=== PATIENT | female | born 1970 | race Caucasian/White ===

== ENCOUNTER 2019-07-13 12:05 | Observation (INO) | payer BC, MEDICARE, SELFPAY ==
[2019-03-01 16:19] VITALS: BMI 22.2
[2019-07-13 12:07] VITALS: BP 127/100; PULSE 59; RESP 14; TEMP 36.6; O2SAT 99; BMI 23.5
--- NOTE | 2019-07-13 14:37 | CM.ED ---
Social Work Consult: [facility] Informant: Dr. Khan Met with patient, patient mother, and patient cousin in room. Introduced self as well as social science professor role. Patient lives with spouse and a 17 year old daughter and 22 year old son in a 2-story home. Patient does not have a bathroom on the first floor and has difficulty ambulating up the stairs due to MS diagnosis. Patient typically self cath's. Patient stating to need assist for all ADL's and is able to do minimal self care. Patient stating that patient children and spouse yell at me. Patient stating that family members will often call patient names and will minimize patient medical conditions. Patient stating to not be a safe place for patient to live. This morning patient was open to leaving the home and patient mother came to get patient. Patient mother was hoping to be able to care for patient but patient fell later this morning and patient mother was unable to assist, this is what lead to patient coming to the ED today. Patient is requesting placement. Patient stating to have no money and that patient spouse refuses to complete a medicaid application or provide needed information for a medicaid application. Patient is wanting to transition to assisted living but aware that patient may require a hirer level of care due to level of needs. Patient stating to not want to return to home with family and want to work towards a divorce with patient spouse. This social science professor educating patient that everything is a process but support will be provided as needed. Patient voicing understanding and aware that group home placement from the emergency room without medicaid and without funds to pay for the group home is not possible at this time. Patient aware that plan will be to transition patient to medical floor for further assistance with group home placement. Dr. Khan confirming plan and collaborating with the hospitalist. All questions answered. Social work to continue to follow for placement. Lea PEREZ, NAE
--- NOTE | 2019-07-13 15:30 | ED.RN ---
ATTEMPTED IV ACCESS TWO TIMES, BOTH TIMES UNSUCCESSFUL. AT THIS TIME PT WANTS TO WAIT TO TRY AGAIN. BLOOD WAS DRAW.
[2019-07-13 15:49] LABS: Absolute Lymphocyte Count 1.31 X10^3/uL (0.83-4.51); Absolute Neutrophil Count 6.7 X10^3/uL (2.0-7.7); Basophil# 0.06 X10^3/uL; Basophil% 0.6 % (0-1); Eosinophil# 0.13 X10^3/uL; Eosinophils% 1.4 % (0-5); Hematocrit 41.6 % (37-47); Hemoglobin 13.9 g/dL (12.0-15.0); Lymphocyte # 1.31 X10^3/ul (4.0); Lymphocyte % 14.2 % (19-41); Mean Corp Hgb Conc 33.4 g/dL (32-36); Mean Corpuscular Hgb 30.8 pg (27.0-32.0); Mean Corpuscular Volume 92.2 fL (81-99); Mean Platelet Vol. 10.8 fl (6.2-12.0); Monocyte# 0.93 X10^3/uL; Monocyte% 10.1 % (0-10); NRBC Flagged by Analyzer 0 % (0-5); Neutrophil # 6.66 X10^3/uL (2.7-7.7); POSITIVE COUNT YES; RBC Distribution Width CV 12.6 % (11.6-14.6); RBC Distribution Width SD 42.3 fl (35.1-43.9); Red Blood Count 4.51 M/mm3 (4.2-5.4); White Blood Count 9.3 K/mm3 (4.4-11.0)
[2019-07-13 15:51] LABS: Differential Indicated SCAN CRITERIA MET
[2019-07-13 15:55] LABS: ALB/GLOB Ratio 1.4 RATIO (0.9-2.4); AST(SGOT) 30 U/L (15-37); Alanine Aminotransfer ALT/SGPT 29 U/L (13-56); Alkaline Phosphatase 80 U/L (45-117); Anion Gap 6 (5-15); BUN 12 mg/dL (7-18); BUN/Creat Ratio 17.6 RATIO (10-20); Chloride 109 mmol/L (98-107); Creatinine, Serum 0.68 mg/dL (0.55-1.02); EST Glomerular Filtration Rate 97 mL/min (>60); Est Glom Filt Rate - Afr Amer 118 mL/min (>60); Estimated Creatinine Clearance 97.32 ml/min; Globulin 2.9 g/dL (2.2-4.2); Glucose 113 mg/dL (74-106); Potassium 4.5 mmol/L (3.5-5.1); Protein, Total 6.9 g/dL (6.4-8.2); Sodium Level 144 mmol/L (136-145)
[2019-07-13 15:56] LABS: Lactic Acid 0.9 mmol/L (0.4-2.0)
[2019-07-13 15:58] VITALS: BP 119/75; PULSE 95; RESP 18; O2SAT 95
[2019-07-13 15:58] LABS: Mucous, Urine 0 SEEN /hpf (<or=2+); Red Blood Cells-Urine 0 SEEN /hpf (0-5)
[2019-07-13 16:02] LABS: Color, Urine Yellow (Yellow); Glucose, Dipstick Normal (Normal); Ketone-Dipstick Negative (Negative); Leukocyte Esterase-Dipstick 500 /ul (Negative); Nitrite-Dipstick Negative (Negative); Occult Blood-Urine 25 /ul (Negative); Protein-Dipstick Negative (Negative); Specific Gravity, Urine 1.015 (1.002-1.030); Urine Bilirubin Dipstick Negative (Negative); Urine Clarity Cloudy (Clear); Urine Urobilinogen Normal (Normal); Urine pH 6.5 (5.0 - 8.0)
[2019-07-13 16:13] LABS: Bacteria 2+ /hpf (None Seen); Squamous Epithelial Cells - UA 0-5 SEEN /hpf (5-10); White Blood Cells 25-50 SEEN /hpf (0-5)
[2019-07-13 16:31] LABS: Anisocytosis RARE; Macrocytosis RARE; Platelet Estimate ADEQUATE (ADEQ)
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
[2019-07-13 17:17] VITALS: BP 144/79; PULSE 95; O2SAT 100
[2019-07-13] MEDS: Cephalexin 250 MG Capsule 500 MG PO (17:22)
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
[2019-07-13 17:36] VITALS: BMI 23.5
[2019-07-13 18:20] VITALS: BP 123/77; PULSE 68; RESP 18; TEMP 36.3; O2SAT 99
[2019-07-13 18:34] VITALS: BMI 21.8
[2019-07-13] MEDS: Acetaminophen 325 MG Tablet 650 MG PO (19:53)
[2019-07-13 21:09] VITALS: BP 121/73; PULSE 71; RESP 18; TEMP 36.9; O2SAT 98
[2019-07-13] MEDS: MELATONIN 3 MG TABLET 12 MG PO (21:24)
[2019-07-13] MEDS: Cephalexin 500 MG Capsule PO (21:24)
[2019-07-13] MEDS: traZODone 50 MG Tablet PO (21:24)
[2019-07-13] MEDS: Heparin Injection (Vial) 5,000 UNIT/ML VIAL 5000 UNIT SC (21:41)
[2019-07-14 03:32] VITALS: BP 114/70; PULSE 96; RESP 18; TEMP 36.6; O2SAT 98
[2019-07-14] MEDS: Cephalexin 500 MG Capsule PO ×3 (06:11→21:12)
[2019-07-14 08:40] VITALS: BP 120/76; PULSE 82; RESP 16; TEMP 36.6; O2SAT 97
[2019-07-14] MEDS: Ascorbic Acid 500 MG Tablet PO (09:03)
[2019-07-14] MEDS: Multivitamins,Ther W-Minerals Tablet 1 TABLET PO (09:03)
[2019-07-14] MEDS: Tolterodine Tartrate 2 MG CAP.SA PO (09:03)
[2019-07-14] MEDS: Heparin Injection (Vial) 5,000 UNIT/ML VIAL 5000 UNIT SC ×2 (09:04→21:12)
[2019-07-14] MEDS: Polyethylene Glycol 3350 17 GM PACKET PO (09:04)
--- NOTE | 2019-07-14 11:58 | PN_ITS ---
Patient Problems: Active and Suspected Problems (Last Reviewed 01/12/19 @ 08:16 by Olman Reno DO) Urinary tract infection (Acute) General weakness (Acute) Subjective: Wants ambien to help her sleep. States she take ritalin to help her walk, and adult ADHD. Complains about discord she is having with her and children. Wants to go to a care home. Asks about how the finances would be if she were . She denies that she in process of getting . Vitals/I&O's: Vital Signs Temp Pulse Resp BP Pulse Ox 36.6 C 82 16 120/76 97 07/14/19 08:40 07/14/19 08:40 07/14/19 08:40 07/14/19 08:40 07/14/19 08:40 Oxygen Delivery Method Room Air Weight: 63.3 kg Body Mass Index (BMI) 21.8 Intake and Output for Last 24 Hours 07/12/19 07/13/19 07/14/19 23:59 23:59 23:59 Intake Total 250 / 250 120 / 120 Balance 250 / 250 120 / 120 General: Alert, - - anxious. disshevled. HEENT: Atraumatic, Normocephalic Lungs: Clear to auscultation, Normal air movement, No rhonchi, No wheeze Cardiovascular: Regular rate, Regular Rhythm, Normal S1, Normal S2 Psych/Mental Status: Anxious Laboratory Results 07/13/19 15:17: WBC 9.3, RBC 4.51, Hgb 13.9, Hct 41.6, MCV 92.2, MCH 30.8, MCHC 33.4, RDW Std Deviation 42.3, RDW Coeff of Anton 12.6, Plt Count TNP, MPV 10.8, Immature Gran % (Auto) 1.700 H, Neut % (Auto) 72.0 H, Lymph % (Auto) 14.2 L, [place] % (Auto) 10.1 H, Eos % (Auto) 1.4, Baso % (Auto) 0.6, Absolute Neuts (auto) 6.7, Absolute Lymphs (auto) 1.31, Nucleated RBC % 0, Differential Comment SEE COMMENT, Platelet Estimate ADEQUATE, Anisocytosis RARE, Macrocytosis RARE 07/13/19 15:17: Sodium 144, Potassium 4.5, Chloride 109 H, Carbon Dioxide 29.0, Anion Gap 6, BUN 12, Creatinine 0.68, Estim Creat Clear Calc 97.32, Est GFR (MDRD) Af Amer 118, Est GFR (MDRD) Non-Af 97, BUN/Creatinine Ratio 17.6, Glucose 113 H, Calcium 9.0, Total Bilirubin 0.40, AST 30, ALT 29, Alkaline Phosphatase 80, Total Protein 6.9, Albumin 4.0, Globulin 2.9, Albumin/Globulin Ratio 1.4 07/13/19 15:17: Lactic Acid 0.9 07/13/19 15:50: Urine Color Yellow, Urine Clarity Cloudy, Urine pH 6.5, Ur Specific [place] 1.015, Urine Protein Negative, Urine Glucose (UA) Normal, Urine Ketones Negative, Urine Occult Blood 25 H, Urine Nitrite Negative, Urine Bilirubin Negative, Urine Urobilinogen Normal, Ur Leukocyte Esterase 500 H, Urine RBC 0 SEEN, Urine WBC 25-50 SEEN, Ur Squamous Epith Cells 0-5 SEEN, Urine Bacteria 2+, Urine Mucus 0 SEEN Current Medications Acetaminophen (Tylenol) 650 mg PO Q6H PRN PRN PRN Reason: Mild Pain (1-3)/Temp > 100.7 F Last Admin: 07/13/19 19:53 Dose: 650 mg Documented by: Ascorbic Acid (Vitamin C) 500 mg PO DAILY@0800 [facility] Last Admin: 07/14/19 09:03 Dose: 500 mg Documented by: Cephalexin (Keflex) 500 mg PO Q8 [facility] Last Admin: 07/14/19 06:11 Dose: 500 mg Documented by: Heparin Sodium (Porcine) (Heparin Na) 5,000 unit SC Q12 [facility] Last Admin: 07/14/19 09:04 Dose: 5,000 unit Documented by: Lactobacillus Acidophilus (Acidophilus) 1 tablet PO DAILY [facility] Last Admin: 07/14/19 09:03 Dose: 1 tablet Documented by: Melatonin (Melatonin) 12 mg PO QHS [facility] Last Admin: 07/13/19 21:24 Dose: 12 mg Documented by: Multivitamins/Minerals (Multivitamin With Minerals) 1 tablet PO DAILYCM [facility] Last Admin: 07/14/19 09:03 Dose: 1 tablet Documented by: Polyethylene Glycol (Miralax) 17 gm PO DAILY [facility] Last Admin: 07/14/19 09:04 Dose: 17 gm Documented by: Tolterodine Tartrate (Detrol La) 2 mg PO DAILY [facility] Last Admin: 07/14/19 09:03 Dose: 2 mg Documented by: Medical Necessity - Tobacco Use Smoking Status: Never smoker Tobacco Use: Non-smoker Assessment/Plan All Active Problems (Last Reviewed 01/12/19 @ 08:16 by Olman Reno, ) Urinary tract infection (Acute) General weakness (Acute) 1. Failure to thrive * Patient with a poor home environment (per her description) went to stay with her mother then came to the hospital to be placed, without her and children's knowledge. * seen by PT and deemed unsafe to return home. * case mgmt looking into SNF 2. Insomnia * pt requesting zolpidem, informed I would increase trazodone from 40 to 100. She was upset with that. * I explained that I am concerned for hangover effect and that it could be exacerbated in a patient with MS 3. ADHD * patient on Ritalin through Dr. Roldan * reviewed [facility] and confirmed that she is on Ritalin as outpt. * recommended that this be weaned to off 4. Anxiety/Depression * it is unclear how accurate her description of her home situation is. She does not want us to contact her family about her being in the hospital. * needs counseling and likely marital counseling (said she had it several years ago x1, but never followed up) 5. Abnormal UA * unclear if actual UTI v irritation from self cath * on empiric cephalexin 6. MS: * continue dalfampridine * follow up with neurology as outpt 7. VTE proph: SQ heparin Greater than 50 minutes, of which greater than 50% of the time was counseling about FTT, anxiety, counseling. Code Visit OBSV E&M: [id number] Subsequent observation care L3
--- NOTE | 2019-07-14 13:19 | CASEMGMT ---
Social Work Note SW met with pt to confirm discharge plans. Pt is alert and orientated x3. Pt states that she doesn't want to return home at this time. Pt states that she can't live with her mother as her mother is not able to take care of her. SW spoke with PT/OT who states pt is requiring assistance with ADLs and are recommending SNF for pt. SW spoke with UNDER[employer]ER who states it took two people to get pt to bathroom. Pt is not able to go to a alf at this time as pt is requiring assistance with ADLs. SW provided pt with list of SNF that accept pt's insurance. Pt is agreeable to [facility] as first choice and [facility] as second choice. SW explained referral process and that pt will need pre-cert. Pt states understanding. ASHLYN placed a call to Oliva at [facility] and provided referral. SW faxed referral to [facility]. Plan: [facility] pending acceptance and pre-cert. At this time, it is not safe for pt to discharge today. Pt is not able to return home, is not able to discharge to her mom's home and is not able to discharge to alf or [facility] as pt is requiring assistance with ADLs and PT/OT are recommending SNF for pt. Danuta Preston THREAD SPINNER, VEGETABLE BUNCHER
[2019-07-14 13:45] VITALS: BP 129/90; PULSE 98; RESP 18; TEMP 37.5; O2SAT 98
--- NOTE | 2019-07-14 15:14 | CHAPLAIN ---
Type of Pastoral Visit _x__ Initial Visit ___ Follow-up Visit ___ On-call Visit ___ General Patient Visit ___ Spiritual Assessment ___ Family Conference ___ Bereavement ___ Rapid Response ___ Code Blue ___ Other (describe below) Pastoral Care Referral From _x__ Patient ___ Family ___ Nurse ___ Physician ___ Supervisor Industrial Arts Education ___ Supervisor [place] ___ Other (describe below) Sacrament/Intervention _x__ Active listening ___ Anointing ___ Sikhism ___ Bereavement ___ Communion _x__ Umu exploration ___ _x__ Life review _x__ Prayer ___ Reconciliation ___ Sacrament of Sick _x__ Supportive presence ___ Wedding ___ Other (describe below) Pastoral Comments patient gives at her request a life history and statement of current home situation that she is wanting to change for better conditions for health and emotional stability; pt asks many questions of spiritual and emotional nature; pt seeks support and direction; pt is very talkative and expresses desire to have opportunities to talk about her feelings and her questions
--- NOTE | 2019-07-14 15:48 | CASEMGMT ---
Social Work Note ASHLYN received call from pt's mother Yolanda. Yolanda states she called [facility] and they will have a bed open in a few days for rehab and asked that this worker make referral to [facility]. ASHLYN informed Yolanda that this worker had already spoke with pt today and pt's first choice is [facility]. ASHLYN informed Yolanda that pt is own person and is able to make own decisions and her choice was [facility]. Yolanda states she spoke with [facility] and they don't take pt under the age of 55 and don't take Medicaid. ASHLYN informed Yolanda that this worker spoke with admissions at [facility] and admissions didn't say anything about not being able to take anyone after the age of 55 and [facility] does take medicaid. Yolanda asked that this worker checks with [facility]. ASHLYN received call from Oliva at [facility] stating she is able to accept pt and has submitted for pre-cert. ASHLYN updated pt and pt's mother Yolanda on acceptance to [facility] pending pre-cert. ASHLYN explained that it is unlikely this worker will receive pre-cert and that pt will be at [facility] throughout weekend. Pt and Yolanda state understanding. SW updated physician that this worker is not able to get pt to safe place for discharge today. ASHLYN explained that pt's family is unable to care for pt and pt is not able to go to a custodial or [facility]PC as pt is requiring assistance with ADLs and transfers and pt is not able to pay privately for SNF. Plan: [facility] pending pre-cert Danuta Preston NUCLEAR POWERPLANT SUPERVISOR, ENGINEER GAS PUMPING STATION
[2019-07-14] MEDS: Acetaminophen 325 MG Tablet 650 MG PO (17:30)
[2019-07-14 21:04] VITALS: BP 107/52; PULSE 85; RESP 16; TEMP 36.8; O2SAT 100
[2019-07-14] MEDS: MELATONIN 3 MG TABLET 12 MG PO (21:12)
[2019-07-14] MEDS: traZODone 100 MG Tablet PO (21:12)
[2019-07-14 21:15] VITALS: PULSE 85
--- NOTE | 2019-07-15 02:36 | NURSING ---
Pt requested that I not wake her up during the night as she has been having trouble sleeping and to do her vitals and assesment in am with meds.
[2019-07-15 05:34] VITALS: BP 109/63; PULSE 87; RESP 16; TEMP 36.8; O2SAT 100
[2019-07-15] MEDS: Cephalexin 500 MG Capsule PO (05:43)
[2019-07-15 07:29] VITALS: BP 125/81; PULSE 92; RESP 14; TEMP 36.9; O2SAT 94
[2019-07-15] MEDS: Polyethylene Glycol 3350 17 GM PACKET PO (07:44)
[2019-07-15] MEDS: Ascorbic Acid 500 MG Tablet PO (07:44)
[2019-07-15] MEDS: Multivitamins,Ther W-Minerals Tablet 1 TABLET PO (07:44)
--- NOTE | 2019-07-15 09:12 | PCM.PN.HOSP ---
Patient Problems: Active and Suspected Problems (Last Reviewed 01/12/19 @ 08:16 by Olman Reno DO) General weakness (Acute) Subjective: Too groggy after 100mg of trazodone, requesting it be discontinued. Open to trying sertraline for her anxiety/depression. Vitals/I&O's: Vital Signs Temp Pulse Resp BP Pulse Ox 36.9 C 92 14 125/81 H 94 07/15/19 07:29 07/15/19 07:29 07/15/19 07:29 07/15/19 07:29 07/15/19 07:29 Oxygen Delivery Method Room Air Weight: 63.3 kg Body Mass Index (BMI) 21.8 Intake and Output for Last 24 Hours 07/13/19 07/14/19 07/15/19 23:59 23:59 23:59 Intake Total 250 / 250 840 / 1040 440 / 440 Balance 250 / 250 840 / 1040 440 / 440 General: Alert, - - up at the side of her bed eating breakfast. less anxious. afebrile. appears older than stated age. HEENT: Atraumatic, Normocephalic Oral: Moist Mucosa, No Gingival or Mucosal Lesions/ Ulcerations Neck: No Nodes, Thyroid Normal Size and Texture Lungs: Clear to auscultation, Normal air movement, No rhonchi, No wheeze, No rales Cardiovascular: Regular rate, Regular Rhythm, Normal S1, Normal S2, No murmurs Abdomen: Bowel Sounds Present, Soft, Non Tender, Non-Distended, No Hepato-splenomegaly Extremities: No edema Skin: No rashes, No breakdown Psych/Mental Status: Appropriate, Anxious Current Medications Acetaminophen (Tylenol) 650 mg PO Q6H PRN PRN PRN Reason: Mild Pain (1-3)/Temp > 100.7 F Last Admin: 07/14/19 17:30 Dose: 650 mg Documented by: Ascorbic Acid (Vitamin C) 500 mg PO DAILY@0800 [facility] Last Admin: 07/15/19 07:44 Dose: 500 mg Documented by: Heparin Sodium (Porcine) (Heparin Na) 5,000 unit SC Q12 [facility] Last Admin: 07/14/19 21:12 Dose: 5,000 unit Documented by: Lactobacillus Acidophilus (Acidophilus) 1 tablet PO DAILY [facility] Last Admin: 07/15/19 07:44 Dose: 1 tablet Documented by: Melatonin (Melatonin) 12 mg PO QHS [facility] Last Admin: 07/14/19 21:12 Dose: 12 mg Documented by: Multivitamins/Minerals ([facility]ivitamin With Minerals) [facility] Admin: 07/15/19 07:44 Dose: 1 tablet Documented by: Polyethylene Glycol (Miralax) 17 gm PO DAILY [facility] Last Admin: 07/15/19 07:44 Dose: 17 gm Documented by: Senna (Senokot) 1 tablet PO BID PRN PRN Reason: Constipation Tolterodine Tartrate (Detrol La) 2 mg PO QHS [facility] Medical Necessity - Tobacco Use Smoking Status: Never smoker Tobacco Use: Non-smoker Assessment/Plan All Active Problems (Last Reviewed 01/12/19 @ 08:16 by Olman Reno DO) Urinary tract infection (Ruled-out) General weakness (Acute) 1. Failure to thrive Patient with a poor home environment (per her description) went to stay with her mother then came to the hospital to be placed, without her and children's knowledge. seen by PT and deemed unsafe to return home. case mgmt looking into SNF 2. Insomnia pt requesting zolpidem, informed I would increase trazodone from 40 to 100. She was upset with that. Now she said trazodone 100 was too potent and asked that it be stopped. I explained that I am concerned for hangover effect and that it could be exacerbated in a patient with MS and that is why I won't prescribe zolpidem for her. 3. ADHD patient on Ritalin through Dr. Roldan reviewed OARRS and confirmed that she is on Ritalin as outpt. recommended that this be weaned to off, particularly in her severe anxiety (where it is contraindicated) 4. Anxiety/Depression it is unclear how accurate her description of her home situation is. She does not want us to contact her family about her being in the hospital. needs counseling and likely marital counseling (said she had it several years ago x1, but never followed up) patient agreeable to start SSRI, understands that it may be several weeks before she notices any affect and will likely need to be titrated upwards 5. Abnormal UA unclear if actual UTI v irritation from self cath DC cephalexin and observe. 6. MS: continue dalfampridine follow up with neurology as outpt 7. VTE proph: SQ heparin 8. Disposition: awaiting on precert for SNF. Patient unlikely to be discharged until next week. Avoidable hospitalization day #1. Code Visit OBSV E&M: 55309 Subsequent observation care L2
[2019-07-15] MEDS: Heparin Injection (Vial) 5,000 UNIT/ML VIAL 5000 UNIT SC ×2 (11:00→20:59)
[2019-07-15 14:00] VITALS: BP 112/83; PULSE 86; RESP 16; TEMP 37.1; O2SAT 98
[2019-07-15 20:30] VITALS: BP 121/69; PULSE 88; RESP 18; TEMP 36.6; O2SAT 99
[2019-07-15] MEDS: Tolterodine Tartrate 2 MG CAP.SA PO (20:56)
[2019-07-15] MEDS: MELATONIN 3 MG TABLET 12 MG PO (20:56)
[2019-07-15] MEDS: Acetaminophen 325 MG Tablet 650 MG PO (20:57)
[2019-07-15] MEDS: Sertraline 50 MG Tablet 25 MG PO (20:57)
[2019-07-16 02:39] VITALS: BP 95/64; PULSE 77; RESP 18; TEMP 36.3; O2SAT 97
[2019-07-16] MEDS: Acetaminophen 325 MG Tablet 650 MG PO (02:58)
[2019-07-16 11:00] VITALS: PULSE 95
[2019-07-16] MEDS: Ascorbic Acid 500 MG Tablet PO (11:23)
[2019-07-16] MEDS: Multivitamins,Ther W-Minerals Tablet 1 TABLET PO (11:23)
[2019-07-16] MEDS: Heparin Injection (Vial) 5,000 UNIT/ML VIAL 5000 UNIT SC (11:24)
--- NOTE | 2019-07-16 12:24 | PN_ITS ---
Patient Problems: Active and Suspected Problems (Last Reviewed 01/12/19 @ 08:16 by Olman Reno DO) General weakness (Acute) Subjective: Patient states that she has now let her know that she is in the hospital. She states that he had to machine operator hop picker her desmethylphenidate and had to give it to her and he found her at the hospital after she let him know. Vitals/I&O's: Vital Signs Temp Pulse Resp BP Pulse Ox 36.3 C L 77 18 95/64 97 07/16/19 02:39 07/16/19 02:39 07/16/19 02:39 07/16/19 02:39 07/16/19 02:39 Oxygen Delivery Method Room Air Weight: 63.3 kg Body Mass Index (BMI) 21.8 Intake and Output for Last 24 Hours 07/14/19 07/15/19 07/16/19 23:59 23:59 23:59 Intake Total 840 / 1040 940 / 940 120 / 120 Balance 840 / 1040 940 / 940 120 / 120 General: Alert, No apparent distress HEENT: Atraumatic, Normocephalic Oral: Moist Mucosa, No Gingival or Mucosal Lesions/ Ulcerations Neck: No Nodes, Trachea Midline Lungs: Clear to auscultation, Normal air movement, No rhonchi, No wheeze, No rales Cardiovascular: Regular rate, Regular Rhythm, Normal S1, Normal S2, No murmurs Abdomen: Bowel Sounds Present, Soft, Non Tender, Non-Distended, No Hepato- splenomegaly Extremities: No edema, No Calf Tenderness Musculoskeletal: No Tenderness to Palpation of Joints or Extremities, No Muscle Wasting Psych/Mental Status: Normal Affect, Appropriate Current Medications Acetaminophen (Tylenol) 650 mg PO Q6H PRN PRN PRN Reason: Mild Pain (1-3)/Temp > 100.7 F Last Admin: 07/16/19 02:58 Dose: 650 mg Documented by: Ascorbic Acid (Vitamin C) 500 mg PO DAILY@0800 [facility] Last Admin: 07/16/19 11:23 Dose: 500 mg Documented by: Heparin Sodium (Porcine) (Heparin Na) 5,000 unit SC Q12 [facility] Last Admin: 07/16/19 11:24 Dose: 5,000 unit Documented by: Lactobacillus Acidophilus (Acidophilus) 1 tablet PO DAILY [facility] Last Admin: 07/16/19 11:23 Dose: 1 tablet Documented by: Melatonin (Melatonin) 12 mg PO QHS [facility] Last Admin: 07/15/19 20:56 Dose: 12 mg Documented by: Multivitamins/Minerals (Multivitamin With Minerals) 1 tablet PO DAILYCM [facility] Last Admin: 07/16/19 11:23 Dose: 1 tablet Documented by: Polyethylene Glycol (Miralax) 17 gm PO DAILY [facility] Last Admin: 07/16/19 11:24 Dose: Not Given Documented by: Senna (Senokot) 1 tablet PO BID PRN PRN Reason: Constipation Sertraline HCl (Zoloft) 25 mg PO QHS [facility] Last Admin: 07/15/19 20:57 Dose: 25 mg Documented by: Tolterodine Tartrate (Detrol La) 2 mg PO QHS [facility] Last Admin: 07/15/19 20:56 Dose: 2 mg Documented by: Medical Necessity - Tobacco Use Smoking Status: Never smoker Tobacco Use: Non-smoker Assessment/Plan All Active Problems (Last Reviewed 01/12/19 @ 08:16 by Olman Reno DO) Urinary tract infection (Ruled-out) General weakness (Acute) 1. Failure to thrive * Patient with a poor home environment (per her description) went to stay with her mother then came to the hospital to be placed, without her and children's knowledge. * seen by PT and deemed unsafe to return home. * case mgmt looking into SNF 2. Insomnia * pt requesting zolpidem, informed I would increase trazodone from 40 to 100. She was upset with that. Now she said trazodone 100 was too potent and asked that it be stopped. * I explained that I am concerned for hangover effect and that it could be exacerbated in a patient with MS and that is why I won't prescribe zolpidem for her. 3. ADHD * patient on dexmethylphenidate through Dr. Roldan. * reviewed OARRS with patient and it shows that her presciption now is 35 daily, down from the 25 BID she was taking previously. * recommended that this be weaned to off, particularly in her severe anxiety (where it is contraindicated), but she will need to follow up with Dr. Roldan for this. * For discharge: Patient has her dexmethylphenidate with her, so when she goes to a SNF, she will not need a Rx for it. 4. Anxiety/Depression * it is unclear how accurate her description of her home situation is. She does not want us to contact her family about her being in the hospital. * needs counseling and likely marital counseling (said she had it several years ago x1, but never followed up) * patient agreeable to start SSRI, understands that it may be several weeks before she notices any affect and will likely need to be titrated upwards 5. Abnormal UA * clinically no UTI * continue to observe with no antibiotics. 6. MS: * continue dalfampridine * follow up with neurology as outpt 7. VTE proph: SQ heparin 8. Disposition: * awaiting on precert for SNF. Patient unlikely to be discharged until next week. * Avoidable hospitalization day #2. Greater than 35 minutes of which greater than 50% of time was discussing and reviewing the patient's dexmethylphenidate. Reviewing the OARRS reports and discussing the recent decrease in the medication from 25 twice daily to 35 daily. Orders were placed in the emergency room to reflect this new change. Patient did seem surprised by that same as she has 2 medications one in the morning 1 in the evening but patient is always been on dexmethylphenidate though it was twice daily at one point. Code Visit OBSV E&M: 47085 Subsequent observation care L3
[2019-07-16 12:51] VITALS: BP 137/111; PULSE 123; RESP 18; TEMP 36.4; O2SAT 100
[2019-07-16 13:49] VITALS: BP 109/84; PULSE 95
[2019-07-16 18:00] VITALS: BP 143/81; PULSE 93; RESP 18; TEMP 36.6; O2SAT 99
--- NOTE | 2019-07-16 18:36 | NURSING ---
Pt has [place] Cathed herself approximately 7 times today since 0600 am this morning. pt does not measure it and can even give an approximate measurement but says its a normal amount.
[2019-07-16 21:59] VITALS: BP 114/71; PULSE 77; RESP 18; TEMP 36.7; O2SAT 100
[2019-07-16] MEDS: MELATONIN 3 MG TABLET 12 MG PO (22:08)
[2019-07-16] MEDS: Sertraline 50 MG Tablet 25 MG PO (22:08)
[2019-07-16] MEDS: Tolterodine Tartrate 2 MG CAP.SA PO (22:08)
[2019-07-17 06:18] VITALS: BP 140/78; PULSE 87; RESP 16; TEMP 37; O2SAT 99
--- NOTE | 2019-07-17 08:22 | PCM.TXEXTCAR ---
- Diet 07/13/19 18:30 Diet: Regular Diet Food consistency:: Regular Liquid Consistency:: Regular/Thin - Routine Orders/Code Status Code Status: Full Code - Wound(s) LEFT KNEE Wound Type: Abrasion - Therapies Physical Therapy: Eval and Treat Occupational Therapy: Eval and Treat - Allergies/Procedures Done in Hospital Allergies/Adverse Reactions: Allergies gabapentin [From Neurontin] Allergy (Severe, Verified 07/13/19 12:07) Swelling Antihistamines - Alkylamine Adverse Reaction (Severe, Verified 07/13/19 12:07) depression hydroxyzine Adverse Reaction (Verified 07/13/19 12:07) Nausea/Vom/Diarrhea - Type of Care/Length of Stay Estimated LOS: Convalescent Care Less Than 30 days Type of Care Needed: Skilled Rehab Potential: Fair Prognosis: Fair - Additional Orders/Day of Discharge Day of Discharge: 07/17/19 - Follow Up Care Primary Care Physician: Olman Reno DO [Primary Care Provider] - Please follow up with your Primary Care Physician in: IN 1-2 WEEKS
--- NOTE | 2019-07-17 08:24 | PCM.DC.SUM ---
Discharge Date and Diagnosis - Problem List Patient Problems: Active and Suspected Problems (Last Reviewed 01/12/19 @ 08:16 by Olman Reno DO) General weakness (Acute) Date of Admission: 07/13/19 - Primary Discharge Diagnosis Active and Suspected Problems (Last Reviewed 01/12/19 @ 08:16 by Olman Reno DO) General weakness (Acute) - Secondary Discharge Diagnosis Chronic Problems (Last Reviewed 01/12/19 @ 08:16 by Olman Reno DO) Urinary retention with incomplete bladder emptying (Chronic) Pt. catherizes herself 7-10 times a day, she uses 14 [place] [employer]-ult[employer] self lubricated catheter. Does not need closed system. Fibromyalgia (Chronic) Narcolepsy (Chronic) Post-nasal drip (Chronic) Neurogenic bladder (Chronic) Depression (Chronic) Multiple sclerosis (Chronic) Hospital Course and Treatment Summary of Care Provided: The patient is a 48 year old F [] Patient Problems: Active and Suspected Problems (Last Reviewed 01/12/19 @ 08:16 by Olman Reno DO) General weakness (Acute) - Physical Exam Vital Signs Temp Pulse Resp BP Pulse Ox 98.6 F 87 16 140/78 H 99 07/17/19 06:18 07/17/19 06:18 07/17/19 06:18 07/17/19 06:18 07/17/19 06:18 Oxygen Delivery Method Room Air Weight: 63.3 kg Body Mass Index (BMI) 21.8 Intake and Output for Last 24 Hours 07/15/19 07/16/19 07/17/19 23:59 23:59 23:59 Intake Total 940 / 940 890 / 1127 237 / 237 Output Total 0 / 0 Balance 940 / 940 890 / 1127 237 / 237 Home Medications: Medications to take at Discharge Ascorbic Acid [Vitamin C] 500 mg PO DAILY@0800 07/13/19 Dalfampridine [Dalfampridine ER] 10 mg PO DAILY PRN PRN 07/13/19 Dexmethylphenidate HCl [Dexmethylphenidate HCl ER] 25 mg PO BID 07/13/19 Lactobacillus Acidophilus [Probiotic] 1 ea PO DAILY 07/13/19 Melatonin [Melatin] 12 mg PO QHS 07/13/19 Multivitamin with Iron [One Daily with Iron] 1 ea PO DAILY 07/13/19 Oxybutynin Chloride [Ditropan Xl] 10 mg PO DAILY 07/13/19 Polyethylene Glycol 3350 [Miralax] 1 pkt PO DAILY 07/13/19 Primary Care Physician: Olman Reno DO [Primary Care Provider] - Please follow up with your Primary Care Physician in: IN 1-2 WEEKS Medical Necessity - Tobacco Use Smoking Status: Never smoker Tobacco Use: Non-smoker
[2019-07-17] MEDS: Ascorbic Acid 500 MG Tablet PO (08:38)
[2019-07-17] MEDS: Multivitamins,Ther W-Minerals Tablet 1 TABLET PO (08:38)
[2019-07-17] MEDS: Polyethylene Glycol 3350 17 GM PACKET PO (10:02)
--- NOTE | 2019-07-17 10:27 | CASEMGMT ---
Social Work Note Physician is ready to discharge patient once pre-cert has been obtained. ASHLYN faxed updated clinicals to [facility]. ASHLYN placed a call to registration who confirms pt has anthem as primary and Medicare A as secondary. Plan: [facility] pending pre-cert. Danuta Preston ARTILLERY OR NAVAL GUNFIRE OBSERVER, GANG MINER
--- NOTE | 2019-07-17 11:19 | CASEMGMT ---
Case Management Progress Note: This teletypewriter installer to patient bedside with patient at bedside. Introduced self and role. Explained and reviewed URE[facility]A form in regards to her current treatment. Notified patient of outpatient billing is determined by her insurance policy and status during hospital stay is reviewed for changes in condition that may warrant inpatient stay. Patient stated understanding and signed UREÑA form which was placed in patient chart. Patient given a copy and denies any questions or concerns. Sera Go RNCM
--- NOTE | 2019-07-17 14:19 | CASEMGMT ---
Addendum entered by Danuta Preston 07/17/19 15:54: ASHLYN placed green sheet on pt's chart in the event pre-cert is obtained Addendum entered by Danuta Preston 07/17/19 15:31: ASHLYN informed Oliva that this worker is hoping to leave the floor around 4:00pm and to call [facility] main number if pre-cert is obtained. SW provided [facility] number. Addendum entered by Danuta Preston 07/17/19 15:15: ASHLYN placed a call to Oliva at [facility] stating pre-cert is still pending Addendum entered by Danuta Preston 07/17/19 14:24: SW did update pt that she is in observation and her hospital stay will be billed under her insurance observation policy. SW informed pt that observation status doesn't affect her insurance going to SNF. Original Note: Social Work Note Student nurse updated this worker that pt had questions regarding observation status at [facility]. SW met with pt and pt's present in room. Pt gave this worker permission to speak to her in front of her . SW informed pt that this worker is still waiting to hear back regarding pt's present. SW informed pt that pre-cert still could be obtained today. Pt states that her is able to transport pt to SNF. Pt asked this worker about the steroids that her neurologist prescribed her and asked if the physician at [facility] can prescribed her more steroids. SW informed pt that this worker is not sure but will ask RN. SW informed pt that this worker will update her when pre-cert has been obtained. Pt states understanding. ASHLYN placed a call to Oliva at [facility] who states pre-cert is still pending. Plan: [facility] pending pre-cert Danuta Preston KINDERGARTEN ASSISTANT, MICROBIAL SPECIALIST
[2019-07-17 14:41] VITALS: BP 126/70; PULSE 95; RESP 18; TEMP 36.6
--- NOTE | 2019-07-17 15:40 | PN_ITS ---
Patient Problems: Active and Suspected Problems (Last Reviewed 01/12/19 @ 08:16 by Olman Reno DO) General weakness (Acute) Subjective: CC: Follow-up adult failure to thrive Patient is a 48-year-old lady with history of multiple sclerosis admitted with progressive generalized weakness and assessment of adult failure to thrive was made admitted to regular nursing floor for further management. Patient was also noted to have abnormal urinalysis on admission. Objective: GENERAL: cooperative HEENT: Atraumatic; EYES; Anicteric, NECK; supple, normal thyroid, RESPIRATORY: Diminished to auscultation CARDIOVASCULAR: Regular S1 S2, GI: soft, non-tender, normoactive bowel sounds, : No Renal angle tenderness; EXTREMITIES: No edema, no clubbing, no cyanosis. MUSCULOSKELETAL: No Joint Tenderness; NEURO: Awake; no lateralizing signs. SKIN: No Rash PSYCH; Normal affect Vitals/I&O's: Vital Signs Temp Pulse Resp BP Pulse Ox 97.8 F 95 18 126/70 H 99 07/17/19 14:41 07/17/19 14:41 07/17/19 14:41 07/17/19 14:41 07/17/19 06:18 Oxygen Delivery Method Room Air Weight: 63.3 kg Body Mass Index (BMI) 21.8 Intake and Output for Last 24 Hours 07/15/19 07/16/19 07/17/19 23:59 23:59 23:59 Intake Total 940 / 940 890 / 1127 237 / 237 Output Total 0 / 0 Balance 940 / 940 890 / 1127 237 / 237 Current Medications Acetaminophen (Tylenol) 650 mg PO Q6H PRN PRN PRN Reason: Mild Pain (1-3)/Temp > 100.7 F Last Admin: 07/16/19 02:58 Dose: 650 mg Documented by: Ascorbic Acid (Vitamin C) 500 mg PO DAILY@0800 [facility] Last Admin: 07/17/19 08:38 Dose: 500 mg Documented by: Heparin Sodium (Porcine) (Heparin Na) 5,000 unit SC Q12 [facility] Last Admin: 07/17/19 10:01 Dose: Not Given Documented by: Lactobacillus Acidophilus (Acidophilus) 1 tablet PO DAILY [facility] Last Admin: 07/17/19 10:02 Dose: 1 tablet Documented by: Melatonin (Melatonin) 12 mg PO QHS [facility] Last Admin: 07/16/19 22:08 Dose: 12 mg Documented by: Multivitamins/Minerals ([facility]) [facility] Last Admin: 07/17/19 08:38 Dose: 1 tablet Documented by: Non-Formulary Medication (Dexmethylphenidate Hcl Er) 25 mg PO BID [facility] Last Admin: 07/17/19 10:05 Dose: 25 mg Documented by: Polyethylene Glycol (Miralax) 17 gm PO DAILY [facility] Last Admin: 07/17/19 10:02 Dose: 17 gm Documented by: Senna (Senokot) 1 tablet PO BID PRN PRN Reason: Constipation Sertraline HCl (Zoloft) 25 mg PO QHS [facility] Last Admin: 07/16/19 22:08 Dose: 25 mg Documented by: Tolterodine Tartrate (Detrol La) 2 mg PO QHS [facility] Last Admin: 07/16/19 22:08 Dose: 2 mg Documented by: Medical Necessity - Tobacco Use Smoking Status: Never smoker Tobacco Use: Non-smoker Assessment/Plan All Active Problems (Last Reviewed 01/12/19 @ 08:16 by Olman Reno DO) Urinary tract infection (Ruled-out) General weakness (Acute) Patient is a 48-year-old lady with history of multiple sclerosis admitted with progressive generalized weakness and assessment of adult failure to thrive was made admitted to regular nursing floor for further management. Patient was also noted to have abnormal urinalysis on admission. 1. Adult failure to thrive: Admitted to regular nursing floor requested for PT OT eval. Plans for patient to be transferred to detention facility pending insurance precertification 2. Multiple sclerosis patient is on dalfampridine and is followed by Dr. Bishop with neurology as outpatient plan is for patient to resume care following her discharge 3. Acute cystitis: Patient was found to have abnormal urinalysis with pyuria on admission, UTIs in patient with multiple sclerosis can mimic MS exacerbation antibiotics initiated on admission was discontinued restarted starting 07/17/2019 4. ADHD patient is on dexmethylphenidate 35 mg daily. She apparently has a recent prescription plan is to continue with this when discharged to a detention facility 5. Depression with anxiety patient started on SSRI 6. Insomnia treated with trazodone dose adjusted 7. DVT prophylaxis Lovenox Code Visit OBSV E&M: 18446 Observ/hosp same date L2
[2019-07-17] MEDS: predniSONE 20 MG Tablet 40 MG PO (15:46)
[2019-07-17 18:18] LABS: Bacteria 0 SEEN /hpf (None Seen); Mucous, Urine 0 SEEN /hpf (<or=2+); Red Blood Cells-Urine 0 SEEN /hpf (0-5); Squamous Epithelial Cells - UA 0 SEEN /hpf (5-10); White Blood Cells 0 SEEN /hpf (0-5)
[2019-07-17 18:30] LABS: Color, Urine Yellow (Yellow); Glucose, Dipstick Normal (Normal); Ketone-Dipstick Negative (Negative); Leukocyte Esterase-Dipstick 25 /ul (Negative); Nitrite-Dipstick Negative (Negative); Occult Blood-Urine 10 /ul (Negative); Protein-Dipstick Negative (Negative); Urine Bilirubin Dipstick Negative (Negative); Urine Clarity Clear (Clear); Urine Urobilinogen Normal (Normal)
[2019-07-17] MEDS: Tolterodine Tartrate 2 MG CAP.SA PO (22:00)
[2019-07-17] MEDS: Heparin Injection (Vial) 5,000 UNIT/ML VIAL 5000 UNIT SC (22:02)
[2019-07-17] MEDS: MELATONIN 3 MG TABLET 12 MG PO (22:02)
[2019-07-17] MEDS: Sertraline 50 MG Tablet 25 MG PO (22:03)
[2019-07-17 22:11] VITALS: BP 112/75; PULSE 76; RESP 20; TEMP 36.7; O2SAT 99
[2019-07-17] MEDS: Acetaminophen 325 MG Tablet 650 MG PO (22:33)
[2019-07-18 02:07] VITALS: BP 109/58; PULSE 80; RESP 18; TEMP 36.8; O2SAT 99
--- NOTE | 2019-07-18 07:55 | PN_ITS ---
Patient Problems: Active and Suspected Problems (Last Reviewed 01/12/19 @ 08:16 by Olman Reno DO) General weakness (Acute) Subjective: CC follow-up of adult failure to thrive Patient insurance precertification still pending did reconsult patient home medications Objective: GENERAL: cooperative HEENT: Atraumatic; EYES; Anicteric, NECK; supple, normal thyroid, RESPIRATORY: Diminished to auscultation CARDIOVASCULAR: Regular S1 S2, GI: soft, non-tender, normoactive bowel sounds, : No Renal angle tenderness; EXTREMITIES: No edema, no clubbing, no cyanosis. MUSCULOSKELETAL: No Joint Tenderness; NEURO: Awake; no lateralizing signs. SKIN: No Rash PSYCH; Normal affect Vitals/I&O's: Vital Signs Temp Pulse Resp BP Pulse Ox 98.3 F 80 18 109/58 L 99 07/18/19 02:07 07/18/19 02:07 07/18/19 02:07 07/18/19 02:07 07/18/19 02:07 Oxygen Delivery Method Room Air Weight: 63.3 kg Body Mass Index (BMI) 21.8 Intake and Output for Last 24 Hours 07/16/19 07/17/19 07/18/19 23:59 23:59 23:59 Intake Total 890 / 1127 637 / 637 Output Total 0 / 0 Balance 890 / 1127 637 / 637 Laboratory Results 07/17/19 17:00: Urine Color Yellow, Urine Clarity Clear, Urine pH 7.0, Ur Specific [place] 1.010, Urine Protein Negative, Urine Glucose (UA) Normal, Urine Ketones Negative, Urine Occult Blood 10 H, Urine Nitrite Negative, Urine Bilirubin Negative, Urine Urobilinogen Normal, Ur Leukocyte Esterase 25 H, Urine RBC 0 SEEN, Urine WBC 0 SEEN, Ur Squamous Epith Cells 0 SEEN, Urine Bacteria 0 SEEN, Urine Mucus 0 SEEN Current Medications Acetaminophen (Tylenol) 650 mg PO Q6H PRN PRN PRN Reason: Mild Pain (1-3)/Temp > 100.7 F Last Admin: 07/17/19 22:33 Dose: 650 mg Documented by: Ascorbic Acid (Vitamin C) 500 mg PO DAILY@0800 [facility] Last Admin: 07/17/19 08:38 Dose: 500 mg Documented by: Heparin Sodium (Porcine) (Heparin Na) 5,000 unit SC Q12 [facility] Last Admin: 10/07/19 22:02 Dose: 5,000 unit Documented by: Lactobacillus Acidophilus (Acidophilus) 1 tablet PO DAILY [facility] Last Admin: 07/17/19 10:02 Dose: 1 tablet Documented by: Melatonin (Melatonin) 12 mg PO QHS [facility] Last Admin: 07/17/19 22:02 Dose: 12 mg Documented by: Multivitamins/Minerals (Multivitamin With Minerals) 1 tablet PO DAILYCM [facility] Last Admin: 07/17/19 08:38 Dose: 1 tablet Documented by: Non-Formulary Medication (Dexmethylphenidate Hcl Er) 25 mg PO BID@0700,1400 [facility] Polyethylene Glycol (Miralax) 17 gm PO DAILY [facility] Last Admin: 07/17/19 10:02 Dose: 17 gm Documented by: Senna (Senokot) 1 tablet PO BID PRN PRN Reason: Constipation Sertraline HCl (Zoloft) 25 mg PO QHS [facility] Last Admin: 07/17/19 22:03 Dose: 25 mg Documented by: Tolterodine Tartrate (Detrol La) 2 mg PO QHS [facility] Last Admin: 07/17/19 22:00 Dose: 2 mg Documented by: Medical Necessity - Tobacco Use Smoking Status: Never smoker Tobacco Use: Non-smoker Assessment/Plan All Active Problems (Last Reviewed 01/12/19 @ 08:16 by Olman Reno DO) Urinary tract infection (Ruled-out) General weakness (Acute) Patient is a 48-year-old lady with history of multiple sclerosis admitted with progressive generalized weakness and assessment of adult failure to thrive was made admitted to regular nursing floor for further management. Patient was also noted to have abnormal urinalysis on admission. 1. Adult failure to thrive: Admitted to regular nursing floor requested for PT OT eval. Plans for patient to be transferred to [facility] facility pending insurance precertification ~07/18 19: Patient tolerating PT. Insurance process still pending 2. Multiple sclerosis patient is on dalfampridine and is followed by Dr. Wang with neurology as outpatient plan is for patient to resume care following her discharge 3. Acute cystitis: Patient was found to have abnormal urinalysis with pyuria on admission, UTIs in patient with multiple sclerosis can mimic MS exacerbation antibiotics initiated on admission was discontinued restarted starting 07/17/2019 4. ADHD patient is on dexmethylphenidate 35 mg daily. She apparently has a recent prescription plan is to continue with this when discharged to a [facility] facility 5. Depression with anxiety patient started on SSRI 6. Insomnia treated with trazodone dose adjusted 7. DVT prophylaxis Lovenox Code Visit OBSV E&M: 21933 Subsequent observation care L2
--- NOTE | 2019-07-18 08:17 | NURSING ---
PHONED DR. JOHNSON OFFICE- REQUESTING COPY OF PT HOME MEDICATION LIST ([phone]), STATES WILL FAX PT HOME MED LIST TO [facility] [phone]
[2019-07-18 09:52] VITALS: BP 100/56; PULSE 86; RESP 18; TEMP 36.7; O2SAT 100
[2019-07-18] MEDS: Multivitamins,Ther W-Minerals Tablet 1 TABLET PO (09:57)
[2019-07-18] MEDS: Polyethylene Glycol 3350 17 GM PACKET PO (09:58)
[2019-07-18] MEDS: Ascorbic Acid 500 MG Tablet PO (09:58)
--- NOTE | 2019-07-18 11:19 | CASEMGMT ---
Social Work Note ASHLYN spoke with Oliva at [facility] stating pre-cert is still pending. Oliva states she has been calling pt's insurance and will continue to do so. Plan: [facility] pending pre-cert Danuta Preston DIVISION HEAD, DAY LIGHT RELIEF OPERATOR
[2019-07-18 14:48] VITALS: BP 106/65; PULSE 96; RESP 18; TEMP 36.6; O2SAT 100
--- NOTE | 2019-07-18 14:53 | CASEMGMT ---
Addendum entered by Danuta Preston 07/18/19 15:30: SW received call from Oliva at [facility] stating pt's case is still pending medical review. ASHLYN faxed updated OT to SNF Original Note: Social Work Note SW received call from Oliva at [facility] stating pt's case went to medical review. ASHLYN faxed updated clinicals to [facility]. ASHLYN met with pt and informed her that her case went to medical review and more times than not if pt's case goes to medical review it gets denied. ASHLYN educated pt on options for discharge in the event pt gets denied SNF including paying privately for SNF or returning home with [facility]. Pt asked about payment plans for her bill at [facility]. ASHLYN explained that this worker is not sure if pt will get bill but encouraged pt to speak with PFS once she gets a bill to discuss payment plans. Pt states understanding. Pt states that if she gets denied SNF then she will return home with [facility]. SW asked pt if she feels safe to return home and pt states yes. Pt states her was at [facility] all day yesterday and they have a good relationship now. Pt states her children even came to visit her yesterday. SW informed pt that this worker will update her once this worker hears from medical review. Pt states understanding. Plan: [facility] pending medical review Danuta Preston FAMILY SERVICE WORKER, LEADER ASSEMBLER
[2019-07-18 20:30] VITALS: BP 103/56; PULSE 70; RESP 20; TEMP 36.7; O2SAT 99
[2019-07-18] MEDS: Tolterodine Tartrate 2 MG CAP.SA PO (21:13)
[2019-07-18] MEDS: MELATONIN 3 MG TABLET 12 MG PO (21:13)
[2019-07-18] MEDS: Sertraline 50 MG Tablet 25 MG PO (21:13)
[2019-07-18] MEDS: Acetaminophen 325 MG Tablet 650 MG PO (23:43)
[2019-07-19 06:00] VITALS: BP 120/72; PULSE 91; RESP 16; TEMP 36.9; O2SAT 99
--- NOTE | 2019-07-19 08:00 | PCM.PN.HOSP ---
Patient Problems: Active and Suspected Problems (Last Reviewed 01/12/19 @ 08:16 by Olman Reno DO) General weakness (Acute) Subjective: CC follow-up adult failure to thrive Patient still waiting for insurance precertification prior to transfer. Did complain of headache this a.m. requested for ibuprofen Objective: GENERAL: cooperative HEENT: Atraumatic; EYES; Anicteric, NECK; supple, normal thyroid, RESPIRATORY: Diminished to auscultation CARDIOVASCULAR: Regular S1 S2, GI: soft, non-tender, normoactive bowel sounds, : No Renal angle tenderness; EXTREMITIES: No edema, no clubbing, no cyanosis. MUSCULOSKELETAL: No Joint Tenderness; NEURO: Awake; no lateralizing signs. SKIN: No Rash PSYCH; Normal affect Vitals/I&O's: Vital Signs Temp Pulse Resp BP Pulse Ox 98.5 F 91 16 120/72 99 07/19/19 06:00 07/19/19 06:00 07/19/19 06:00 07/19/19 06:00 07/19/19 06:00 Oxygen Delivery Method Room Air Weight: 63.3 kg Body Mass Index (BMI) 21.8 Intake and Output for Last 24 Hours 07/17/19 07/18/19 07/19/19 23:59 23:59 23:59 Intake Total 637 / 637 550 / 550 Output Total 0 / 0 Balance 637 / 637 550 / 550 Current Medications Acetaminophen (Tylenol) 650 mg PO Q6H PRN PRN PRN Reason: Mild Pain (1-3)/Temp > 100.7 F Last Admin: 07/18/19 23:43 Dose: 650 mg Documented by: Ascorbic Acid (Vitamin C) 500 mg PO DAILY@0800 [facility] Last Admin: 07/18/19 09:58 Dose: 500 mg Documented by: Heparin Sodium (Porcine) (Heparin Na) 5,000 unit SC Q12 [facility] Last Admin: 07/18/19 21:17 Dose: Not Given Documented by: Ibuprofen (Motrin) 400 mg PO Q6H PRN PRN PRN Reason: Pain or Fever Imipramine HCl (Tofranil) 50 - 100 mg PO QHS [facility] Last Admin: 07/18/19 21:17 Dose: Not Given Documented by: Lactobacillus Acidophilus (Acidophilus) 1 tablet PO DAILY [facility] Last Admin: 07/18/19 09:58 Dose: 1 tablet Documented by: Melatonin (Melatonin) 12 mg PO QHS [facility] Last Admin: 07/18/19 21:13 Dose: 12 mg Documented by: Multivitamins/Minerals (Multivitamin With Minerals) 1 tablet PO DAILYCM [facility] Last Admin: 07/18/19 09:57 Dose: 1 tablet Documented by: Non-Formulary Medication (Dexmethylphenidate Hcl [Dexmethylphenidate Hcl Er]) 35 mg PO 1200 [facility] Last Admin: 07/18/19 12:44 Dose: 35 mg Documented by: Non-Formulary Medication (Methylphenidate Hcl) 20 mg PO 0700 [facility] Last Admin: 07/19/19 06:50 Dose: 20 mg Documented by: Non-Formulary Medication (Dalfampridine) 10 mg PO 1000,1900 [facility] Polyethylene Glycol (Miralax) 17 gm PO DAILY [facility] Last Admin: 07/18/19 09:58 Dose: 17 gm Documented by: Senna (Senokot) 1 tablet PO BID PRN PRN Reason: Constipation Sertraline HCl (Zoloft) 25 mg PO QHS [facility] Last Admin: 07/18/19 21:13 Dose: 25 mg Documented by: Tolterodine Tartrate (Detrol La) 2 mg PO QHS [facility] Last Admin: 07/18/19 21:13 Dose: 2 mg Documented by: Tolterodine Tartrate (Detrol La) 2 mg PO DAILY [facility] Medical Necessity - Tobacco Use Smoking Status: Never smoker Tobacco Use: Non-smoker Assessment/Plan All Active Problems (Last Reviewed 01/12/19 @ 08:16 by Olman Reno DO) Urinary tract infection (Ruled-out) General weakness (Acute) Patient is a 48-year-old lady with history of multiple sclerosis admitted with progressive generalized weakness and assessment of adult failure to thrive was made admitted to regular nursing floor for further management. Patient was also noted to have abnormal urinalysis on admission. 1. Adult failure to thrive: Admitted to regular nursing floor requested for PT OT eval. Plans for patient to be transferred to intermediate facility pending insurance precertification ~07/18 19: Patient tolerating PT. Insurance process still pending ~919: Patient seen admits to improvement in her overall generalized weakness. Insurance precertification still still pending 2. Multiple sclerosis patient is on dalfampridine and is followed by Dr. Wang with neurology as outpatient plan is for patient to resume care following her discharge 3. Acute UTI ruled out 4. ADHD patient is on dexmethylphenidate 35 mg daily. She apparently has a recent prescription plan is to continue with this when discharged to a intermediate facility 5. Depression with anxiety patient started on SSRI 6. Insomnia treated with trazodone dose adjusted 7. DVT prophylaxis Lovenox Code Visit OBSV E&M: 19851 Subsequent observation care L2
[2019-07-19 08:41] LABS: Absolute Neutrophil Count 3.9 X10^3/uL (2.0-7.7); Basophil# 0.04 X10^3/uL; Basophil% 0.7 % (0-1); Eosinophil# 0.11 X10^3/uL; Eosinophils% 1.9 % (0-5); Hemoglobin 13.5 g/dL (12.0-15.0); Lymphocyte % 17.4 % (19-41); Mean Corp Hgb Conc 32.9 g/dL (32-36); Mean Corpuscular Hgb 31.1 pg (27.0-32.0); Mean Corpuscular Volume 94.5 fL (81-99); Mean Platelet Vol. 9.8 fl (6.2-12.0); Monocyte# 0.65 X10^3/uL; Monocyte% 11.3 % (0-10); NRBC Flagged by Analyzer 0 % (0-5); Neutrophil # 3.86 X10^3/uL (2.7-7.7); Neutrophil % 67.1 % (47-70); Platelet Count 294 K/mm3 (150-450); RBC Distribution Width CV 13.2 % (11.6-14.6); RBC Distribution Width SD 45.1 fl (35.1-43.9); Red Blood Count 4.34 M/mm3 (4.2-5.4); White Blood Count 5.8 K/mm3 (4.4-11.0)
[2019-07-19 08:44] VITALS: BP 105/67; PULSE 115; RESP 18; TEMP 37.2; O2SAT 100
[2019-07-19] MEDS: Polyethylene Glycol 3350 17 GM PACKET PO (08:49)
[2019-07-19] MEDS: Ascorbic Acid 500 MG Tablet PO (08:49)
[2019-07-19] MEDS: Multivitamins,Ther W-Minerals Tablet 1 TABLET PO (08:49)
[2019-07-19] MEDS: Acetaminophen 325 MG Tablet 650 MG PO ×2 (08:51→16:13)
[2019-07-19 08:55] LABS: Anion Gap 7 (5-15); BUN 14 mg/dL (7-18); BUN/Creat Ratio 24.1 RATIO (10-20); Calcium,Total 8.9 mg/dL (8.5-10.1); Chloride 108 mmol/L (98-107); Creatinine, Serum 0.58 mg/dL (0.55-1.02); EST Glomerular Filtration Rate 117 mL/min (>60); Est Glom Filt Rate - Afr Amer 142 mL/min (>60); Glucose 83 mg/dL (74-106); Potassium 3.9 mmol/L (3.5-5.1); Sodium Level 144 mmol/L (136-145)
--- NOTE | 2019-07-19 09:24 | CASEMGMT ---
Social Work Note SW faxed updated clinicals to [facility]. Plan: [facility] pending medical review Danuta Preston LOADER UNLOADER, SKIP PITMAN
--- NOTE | 2019-07-19 09:30 | CASEMGMT ---
Social Work Note Pt's family requesting to speak to this worker. ASHLYN met with pt's cousin Deidra. ASHLYN reviewed pt's demographics and Deidra is not listed as a contact. ASHLYN informed Deidra that this worker will have to get pt's permission to speak to her as she is not listed on pt's demographics. ASHLYN met with pt without Deidra in room. Pt gave this worker permission to speak to Deidra. Deidra asked for update on pt going to SNF. ASHLYN informed Deidra that this worker is still waiting to hear from insurance but did inform Deidra that pt's case went to medical review and more times than not if the case goes to medical review then pt gets denied. Deidra asked if pt gets denied what the plan will be for pt. ASHLYN informed Deidra that pt informed this worker that if she gets denied SNF placement then she will return home with [facility]. Deidra states returning home is not an option as it is unsafe for pt. ASHLYN informed Deidra that pt is own person and she can decide what she wishes to do. Deidra states that if pt goes home then she will call the police as it is unsafe for pt to be there. ASHLYN informed Deidra that if pt gets denied by insurance than pt could possible go to SNF on pending medicaid but informed Deidra that not a lot of SNF take pending medicaid and pending medicaid is not a guaranteed pt will get medicaid and if pt is denied medicaid then pt will need to pay privately for SNF. ASHLYN also informed Deidra that pt could also pay privately for SNF if pt is denied SNF by insurance. Deidra states pt can't afford to pay privately and doesn't want to have pt go to SNF under pending medicaid as pt has tried to apply for medicaid before and got denied. ASHLYN informed Deidra that [facility] medicaid is a different income requirement than just regular medicaid but again this worker can't guarantee pt will get approved for medicaid. Deidra confirms that pt's does still work. ASHLYN informed Deidra that Medicaid will look at pt's spouse and his income and their assets. Deidra asked about APS report. ASHLYN informed Deidra that pt is only 48 and doesn't meet the age requirement for APS. Deidra states pt is not able to go home as well because she is requiring assistance for ADLs. ASHLYN informed Deidra that pt is doing stand by assist with PT/OT at this time. ASHLYN informed Deidra again that at this time pt's case is still pending medical review and this worker should know today if pt will be denied or approved for SNF. Deidra states understanding. Danuta Preston GEAR TOOTH LAPPING MACHINE OPERATOR, BI DEVELOPER
--- NOTE | 2019-07-19 11:53 | CASEMGMT ---
Social Work Note ASHLYN received message from Oliva at [facility] stating pre-cert has been obtained and pt can discharge to SNF today. ASHLYN updated pt and Deidra on pt's approval to go to SNF today. Pt and Deidra thanked this worker and stated understanding. SW informed pt that once she gets to [facility], staff will be able to assist with her applying for Medicaid. SW informed pt to apply for Medicaid because if she is wanting long term acute care registered nurse care she will need medicaid. Pt states understanding. Pt states that her will be able to transport pt and he gets off work around 5:00pm. Physician updated on approval for SNF. ASHLYN faxed completed discharge paperwork to [facility] including transfer to extended care facility, signed medication list and any scripts. Original in SNF folder and copy on pt's chart. ASHLYN completed PAS/RR in HENS. Original in SNF folder and copy on pt's chart. ASHLYN placed a call to Oliva at [facility] and updated her on transportation time. ASHLYN also informed Oliva that pt would like to complete medicaid application while she is at SNF as pt will likely need long term acute care registered nurse placement at SNF. Oliva states understanding, will assist pt with completing medicaid application. SW in to speak with pt. ASHLYN provided pt with national MS association information and support. ASHLYN provided pt with Medicaid application and provided pt with list of documents that [employer] [facility] will need for medicaid. Pt states understanding, pt states that she called her and he will be at [facility] after work to transport pt. RN updated on transportation time. Plan: Pt to discharge to [facility] skilled today with pt's family transporting Danuta Preston DATA CENTER TECHNICIAN, SUPERVISOR WHITE SUGAR
[2019-07-19] MEDS: Ibuprofen 400 MG Tablet PO (12:03)
--- NOTE | 2019-07-19 12:24 | PCM.DC.SUM ---
Discharge Date and Diagnosis - Problem List Patient Problems: Active and Suspected Problems (Last Reviewed 01/12/19 @ 08:16 by Olman Reno DO) General weakness (Acute) Date of Admission: 07/13/19 Date of Discharge: 07/19/19 - Primary Discharge Diagnosis Active and Suspected Problems (Last Reviewed 01/12/19 @ 08:16 by Olman Reno DO) General weakness (Acute) - Secondary Discharge Diagnosis Chronic Problems (Last Reviewed 01/12/19 @ 08:16 by Olman Reno DO) Urinary retention with incomplete bladder emptying (Chronic) Pt. catherizes herself 7-10 times a day, she uses 14 grenadian Cure-ultra self lubricated catheter. Does not need closed system. Fibromyalgia (Chronic) Narcolepsy (Chronic) Post-nasal drip (Chronic) Neurogenic bladder (Chronic) Depression (Chronic) Multiple sclerosis (Chronic) Hospital Course and Treatment Summary of Care Provided: Patient is a 48-year-old lady with history of multiple sclerosis admitted with progressive generalized weakness and assessment of adult failure to thrive was made admitted to regular nursing floor for further management. Patient was also noted to have abnormal urinalysis on admission. 1. Adult failure to thrive: Admitted to regular nursing floor requested for PT OT eval. Patient was transferred to half-way facility once insurance precertification was 2. Multiple sclerosis patient is on dalfampridine and is followed by Dr. Wang with neurology as outpatient plan is for patient to resume care following her discharge 3. Acute UTI ruled out 4. ADHD patient is on dexmethylphenidate; did continue 5. Depression with anxiety patient started on SSRI 6. DVT prophylaxis Lovenox Patient Problems: Active and Suspected Problems (Last Reviewed 01/12/19 @ 08:16 by Olman Reno DO) General weakness (Acute) Objective: GENERAL: cooperative HEENT: Atraumatic; EYES; Anicteric, NECK; supple, normal thyroid, RESPIRATORY: Diminished to auscultation CARDIOVASCULAR: Regular S1 S2, GI: soft, non-tender, normoactive bowel sounds, : No Renal angle tenderness; EXTREMITIES: No edema, no clubbing, no cyanosis. MUSCULOSKELETAL: No Joint Tenderness; NEURO: Awake; no lateralizing signs. SKIN: No Rash PSYCH; Normal affect - Physical Exam Vital Signs Temp Pulse Resp BP Pulse Ox 99 F 115 H 18 105/67 100 07/19/19 08:44 07/19/19 08:44 07/19/19 08:44 07/19/19 08:44 07/19/19 08:44 Oxygen Delivery Method Room Air Weight: 63.3 kg Body Mass Index (BMI) 21.8 Intake and Output for Last 24 Hours 07/17/19 07/18/19 07/19/19 23:59 23:59 23:59 Intake Total 637 / 637 2049 Output Total 0 / 0 3 / 3 Balance 637 / 637 2046 Microbiology Past 72 Hours 07/17/19 17:00 Urine Culture - Preliminary Urine Catheter - Catheter Culture exhibits no growth. Laboratory Tests Past 24 Hrs 07/19/19 07/19/19 08:18 08:18 WBC 5.8 RBC 4.34 Hgb 13.5 Hct 41.0 MCV 94.5 MCH 31.1 MCHC 32.9 RDW Std Deviation 45.1 H RDW Coeff of Anton 13.2 Plt Count 294 MPV 9.8 Immature Gran % (Auto) 1.600 H Neut % (Auto) 67.1 Lymph % (Auto) 17.4 L [place] % (Auto) 11.3 H Eos % (Auto) 1.9 Baso % (Auto) 0.7 Absolute Neuts (auto) 3.9 Absolute Lymphs (auto) 1.00 Nucleated RBC % 0 Sodium 144 Potassium 3.9 Chloride 108 H Carbon Dioxide 29.0 Anion Gap 7 BUN 14 Creatinine 0.58 Estim Creat Clear Calc 114.10 Est GFR (MDRD) Af Amer 142 Est GFR (MDRD) Non-Af 117 BUN/Creatinine Ratio 24.1 H Glucose 83 Calcium 8.9 Magnesium 2.0 Discharge Diet: No Restrictions Discharge Activity: Return to Normal Activity Home Medications: Medications to take at Discharge Ascorbic Acid [Vitamin C] 1,000 mg PO DAILY@0800 07/13/19 Lactobacillus Acidophilus [Probiotic] 1 ea PO DAILY 07/13/19 Melatonin [Melatin] 12 mg PO QHS 07/13/19 Multivitamin with Iron [One Daily with Iron] 1 ea PO DAILY 07/13/19 Polyethylene Glycol 3350 [Miralax] 1 pkt PO DAILY 07/13/19 Cholecalciferol (Vitamin D3) [Vitamin D3] 3,000 unit PO DAILY 07/18/19 Dalfampridine [Ampyra] 10 mg PO DAILY 07/18/19 Dexmethylphenidate HCl [Dexmethylphenidate HCl ER] 35 mg PO 1200 07/18/19 Hydroxyzine HCl 25 - 50 mg PO QHS PRN 07/18/19 Methylphenidate HCl 20 mg PO 0700 07/18/19 Oxybutynin Chloride [Oxybutynin Chloride ER] 0.5 tab PO DAILY 07/18/19 Trimipramine Maleate 50 - 100 mg PO QHS 07/18/19 Primary Care Physician: Olman Reno DO [Primary Care Provider] - Please follow up with your Primary Care Physician in: IN 1-2 WEEKS Disposition: Retirement facility Minutes spent on discharge:: 35 Patient Condition:: Stable Medical Necessity - Tobacco Use Smoking Status: Never smoker Tobacco Use: Non-smoker Meaningful Use Info Meaningful Use Diagnoses (Choose all that apply): None applicable Code Visit OBSV E&M: 73303 Observation care discharge
--- NOTE | 2019-07-19 14:39 | CHAPLAIN ---
Type of Pastoral Visit ___ Initial Visit _x__ Follow-up Visit ___ On-call Visit ___ General Patient Visit ___ Spiritual Assessment ___ Family Conference ___ Bereavement ___ Rapid Response ___ Code Blue ___ Other (describe below) Pastoral Care Referral From _x__ Patient ___ Family ___ Nurse ___ Physician ___ Community Reinvestment Act Officer ___ Computer Operations Specialist ___ Other (describe below) Sacrament/Intervention _x__ Active listening ___ Anointing ___ Uatsdin ___ Bereavement ___ Communion _x__ Umu exploration ___ _x__ Life review _x__ Prayer ___ Reconciliation ___ Sacrament of Sick _x__ Supportive presence ___ Wedding ___ Other (describe below) Pastoral Comments patient requested a follow up visit; pt states that she is in a better frame of mind and it appears that she is more encouraged about her situation; pt states that she has been approved for some rehab; pt states that she had a positive visit with her spouse; pt has more questions to ask of a spiritual nature and is seeking meaning and understanding in her journey; prayer welcomed
[2019-07-19 14:45] VITALS: BP 112/61; PULSE 103; RESP 18; TEMP 37.4; O2SAT 100
== END 2019-07-19 19:20 | disposition skilled nursing facility (03) ==
LOC: ED 16:45 → MS3 17:29
PROVIDERS: Admitting Provider Internal Medicine; Emergency Provider Emergency Medicine; Family Provider Family Medicine; PCP Family Medicine; Referring Provider Internal Medicine; Visit Provider Internal Medicine
DX: R53.1 Weakness (principal); M79.7 Fibromyalgia; G35 Multiple sclerosis; F90.9 Attention-deficit hyperactivity disorder, unspecified type; F41.8 Other specified anxiety disorders; R62.7 Adult failure to thrive; G47.419 Narcolepsy without cataplexy; R33.9 Retention of urine, unspecified; M21.371 Foot drop, right foot; N31.9 Neuromuscular dysfunction of bladder, unspecified; Z68.21 Body mass index [BMI] 21.0-21.9, adult; Z79.899 Other long term (current) drug therapy; Z87.891 Personal history of nicotine dependence
CPT/HCPCS: 36415; 80048; 80053; 81001; 83605; 83735; 85025; 87086; 96372; 97110; 97116; 97163; 97166; 97530; 97535; 99218; 99284; P9612; A4216; G0378

== ENCOUNTER → 2020-12-17 15:13 | Outpatient (CLI) | payer BC, SELFPAY ==
[2020-07-16 14:32] VITALS: BMI 21.8
[2020-12-17 16:33] LABS: Absolute Lymphocyte Count 1.69 X10^3/uL (0.83-4.51); Absolute Neutrophil Count 5.6 X10^3/uL (2.0-7.7); Basophil# 0.06 X10^3/uL; Basophil% 0.7 % (0-1); Eosinophil# 0.11 X10^3/uL; Eosinophils% 1.3 % (0-5); Hematocrit 42.9 % (37-47); Hemoglobin 14.1 g/dL (12.0-15.0); Lymphocyte # 1.69 X10^3/ul (4.0); Lymphocyte % 20.5 % (19-41); Mean Corp Hgb Conc 32.9 g/dL (32-36); Mean Corpuscular Hgb 34.2 pg (27.0-32.0); Mean Corpuscular Volume 104.1 fL (81-99); Mean Platelet Vol. 10.4 fl (6.2-12.0); Monocyte# 0.76 X10^3/uL; Monocyte% 9.2 % (0-10); NRBC Flagged by Analyzer 0 % (0-5); Neutrophil # 5.61 X10^3/uL (2.7-7.7); Neutrophil % 67.9 % (47-70); Platelet Count 436 K/mm3 (150-450); RBC Distribution Width CV 12.4 % (11.6-14.6); RBC Distribution Width SD 47.9 fl (35.1-43.9); Red Blood Count 4.12 M/mm3 (4.2-5.4); White Blood Count 8.3 K/mm3 (4.4-11.0)
== END ==
PROVIDERS: PCP Family Medicine; Referring Provider Family Medicine; Visit Provider Family Medicine
DX: D64.9 Anemia, unspecified (principal)
CPT/HCPCS: 36415; 85025